=== PATIENT | female | born 1955 | race Hispanic/Latino ===

== ENCOUNTER 2024-10-10 00:55 | Emergency (ER) | payer MEDICAID, OTHER ==
[~2024-10-10] VITALS: Ht 154.9 cm; Wt 53.5 kg
[2024-10-10 01:38] LABS: IMMATURE GRANULOCYTE ABSOLUTE 0.00 K/uL (0-1); NUCLEATED RED BLOOD CELLS 0.0 % (0.0-0.19); PLATELET COUNT (AUTO) 151 K/uL (130-400); RED BLOOD CELL COUNT(AUTO) 4.02 MIL/uL (4.00-5.50); RED CELL DISTRIBUTION WIDTH 15.5 % (11.0-15.5); WHITE BLOOD COUNT (AUTO) 3.5 K/uL (4.8-10.8)
[2024-10-10 01:41] LABS: ADD UA MICROSCOPIC NO; APPEARANCE,URINE CLEAR (CLEAR); GLUCOSE, URINE (UA) NEGATIVE (NEGATIVE); LEUKOCYTE ESTERASE ,URINE NEGATIVE Leu/uL (NEGATIVE); NITRATE,URINE NEGATIVE (NEGATIVE); OCCULT BLOOD,URINE NEGATIVE (NEGATIVE)
[2024-10-10 01:46] LABS: CREATININE 1.0 mg/dL (0.5-1.0); GLOMERULAR FILTR. RATE CALC 62.0 mL/min (>90); GLUCOSE,RANDOM 86.0 mg/dL (70-105); SODIUM SERUM 145.0 mmol/L (136-145); UREA NITROGEN, BLOOD 13.0 mg/dL (7-18)
[2024-10-10 01:52] LABS: CREATINE KINASE, TOTAL 128.0 U/L (21-232)
[2024-10-10] MEDS: LACTATED RINGERS 1000ML IV STA (02:08)
--- NOTE | 2024-10-10 02:36 | HMCIMG ---
EXAM: CR Chest, 1 view CLINICAL HISTORY: Chest pain. COMPARISON: None provided. FINDINGS: Hyperinflated lungs, likely mild COPD. The lungs show no infiltrates or other acute findings. No pleural effusion or pneumothorax. The cardiomediastinal silhouette is within normal limits. Mild atherosclerotic aorta. No acute osseous abnormality. IMPRESSION: No acute cardiopulmonary process is evident. Mild COPD. /[place]
--- NOTE | 2024-10-10 02:45 | ERN ---
General Chief Complaint: Chest Pain Stated Complaint: CHEST PAIN Time Seen by MD: 01:25 Source: patient History of Present Illness Initial Comments Patient comes in with chest pain. No shortness of breath. She has history of a prior myocardial infarction and a stroke. She states that this does not feel quite the same as when she had her Allergies: Coded Allergies: Penicillins (Unverified Allergy, Unknown, 10/10/24) codeine (Unverified Allergy, Unknown, 10/10/24) Past Medical History Past Medical History: CVA, PA Past Surgical History: None Constitutional: (-) chills, (-) diaphoresis, (-) fever, (-) malaise, (-) weakness, (-) other documentation EENTM: (-) eye pain, (-) blurred vision, (-) tearing, (-) double vision, (-) ear pain, (-) ear discharge, (-) nose pain, (-) nose congestion, (-) throat pain, (-) Throat swelling, (-) mouth pain, (-) tooth pain, (-) mouth swelling, (-) other documentation Respiratory: (-) cough, (-) orthopnea, (-) short of breath, (-) stridor, (-) wheezing, (-) other documentation Cardiovascular: (+) chest pain, (+) other documentation Gastrointestinal/Abdominal: (+) nausea Genitourinary: (-) vaginal discharge, (-) vaginal bleeding, (-) dysuria, (-) frequency, (-) hematuria, (-) pain, (-) other documentation Musculoskeletal: (-) Neck pain, (-) back pain, (-) Flank Pain, (-) joint pain, (-) joint swelling, (-) muscle pain, (-) muscle stiffness, (-) gout, (-) other documentation Skin: (-) laceration, (-) contusion, (-) abrasion, (-) abscess, (-) rash, (-) change in color, (-) change in hair, (-) change in nails, (-) diaphoresis, (-) dryness, (-) other documentation Physical Exam General Appearance: (+) mild distress Orientation: (+) alert, (+) oriented x 3 Head/Face Trauma: No Eye: bilateral eye normal inspection, bilateral eye PERRL, bilateral eye EOMI Ear, Nose, Throat: (+) hearing grossly normal, (+) normal ENT inspection, (+) moist mucous membraine Neck: (+) normal inspection, (+) supple, (+) full range of motion Respiratory: (+) chest non-tender, (+) lungs clear, (+) well ventilated Heart: (+) regular, (+) no gallop Vascular: (+) no edema, (+) normal peripheral pulse Gastrointestinal: (+) soft, (+) non-tender, (+) bowel sound present Results Laboratory and Microbiology Lab and Micro Result Laboratory Tests Test 10/10/24 01:30 10/10/24 01:31 Urine Color COLORLESS (YELLOW) Urine Appearance CLEAR (CLEAR) Urine pH 6.0 (5.0-8.0) Urine Specific [place] 1.003 (1.001-1.031) Urine Protein NEGATIVE mg/dL (NEGATIVE) Urine Glucose (UA) NEGATIVE mg/dL (NEGATIVE) Urine Ketones NEGATIVE mg/dL (NEGATIVE) Urine Occult Blood NEGATIVE (NEGATIVE) Urine Nitrate NEGATIVE (NEGATIVE) Urine Bilirubin NEGATIVE mg/dL (NEGATIVE) Urine Urobilinogen 0.2 mg/dL (0.2-1.0) Urine Leukocyte Esterase NEGATIVE Daniel/uL White Blood Count 3.5 K/uL (4.8-10.8) L Red Blood Count 4.02 MIL/uL (4.00-5.50) Hemoglobin 10.8 g/dL (12.0-16.0) L Hematocrit 34.4 % (36-48) L Mean Corpuscular Volume 85.6 fL (79-99) Mean Corpuscular Hemoglobin 26.9 pg (27.0-33.0) L Mean Corpuscular Hemoglobin Concent 31.4 g/dL (32.0-36.0) L Red Cell Distribution Width 15.5 % (11.0-15.5) Platelet Count 151 K/uL (130-400) Mean Platelet Volume 9.7 fL (7.5-10.5) Immature Granulocyte % (Auto) 0.0 % (0-1) Neutrophils (%) (Auto) 34.1 % (40.0-77.0) L Lymphocytes (%) (Auto) 56.5 % (21.0-51.0) H Monocytes (%) (Auto) 8.2 % (3.0-13.0) Eosinophils (%) (Auto) 0.3 % (0.0-8.0) Basophils (%) (Auto) 0.9 % (0.0-5.0) Neutrophils # (Auto) 1.2 K/uL (1.8-7.7) L Lymphocytes # (Auto) 2.0 K/uL (1.0-4.8) Monocytes # (Auto) 0.3 K/uL (0.1-1.0) Eosinophils # (Auto) 0.01 K/uL (0.00-0.70) Basophils # (Auto) 0.03 K/uL (0.00-0.20) Absolute Immature Granulocyte (auto 0.00 K/uL (0-1) Nucleated Red Blood Cells 0.0 % (0.0-0.19) Sodium Level 145 mmol/L (136-145) Potassium Level 3.6 mmol/L (3.5-5.1) Chloride Level 106 mmol/L (101-111) Carbon Dioxide Level 29 mmol/L (21-32) Blood Urea Nitrogen 13 mg/dL (7-18) Creatinine 1.0 mg/dL (0.5-1.0) Glomerular Filtration Rate Calc 62 mL/min (>90) Random Glucose 86 mg/dL (70-105) Total Calcium 9.4 mg/dL (8.5-10.1) Total Creatine Kinase 128 U/L (21-232) Troponin I High Sensitivity 10 ng/L (4-50) B-Type Natriuretic Peptide 81 pg/mL (0-100) MDM MDM: Differential diagnosis: Given the patient's past medical history and most like the presence of vascular disease we will work this patient up to make sure she does not have an acute PA. I will also give her some fluid and examine for a urinary tract infection. Rationale: Tests considered and ordered secondary to shared decision making include: Previous outside records reviewed: Old ER visits. Risk of complication and/or morbidity or mortality of patient management: None Medications-Per medication reconciliation Need for hospitalization: Patient does meet criteria for hospitalization. Need for emergency major/minor surgery: No There are no social concerns with this patient. Prescription drug management Prescriptions will include symptomatic care Patient's prior external medical records from other ER visits were reviewed by me as indicated. Prior testing and results from previous visits were reviewed. Prior tests were taken into account with medical decision making and resource utilization, independent historian/historians were used to obtain complete medical history. I independently interpreted the test that were performed, results were reviewed by me and considered findings on radiology if ordered. Patient's cardiac enzymes are normal patient's chemistry panel is normal patient's CBC is normal patient does not have a urinary tract infection I will finish the fluid bolus and discharge her. ED Course Orders Procedure Category Date Status Time Vital Signs Per CPOE 10/10/24 Transmitted Routine 01:12 Chest 1vw RAD 10/10/24 Resulted 01:12 12 Lead Ekg Tracing- EKG 10/10/24 Logged Technical 01:12 Oxygen By Nc/Pulse Ox CPOE 10/10/24 Transmitted 01:12 Maintain Iv CPOE 10/10/24 Transmitted 01:12 Iv Insertion CPOE 10/10/24 Transmitted 01:12 Cardiac Monitoring CPOE 10/10/24 Transmitted 01:12 Pulse Oximetry With CPOE 10/10/24 Transmitted Vs And Prn 01:12 Cbc With Differential LAB 10/10/24 Complete 01:12 Activity: Br W/Brp CPOE 10/10/24 Transmitted With Assist 01:12 Creatine Kinase, Total LAB 10/10/24 Complete 01:12 Troponin I High LAB 10/10/24 Complete Sensitivity 01:12 Urinalysis Profile LAB 10/10/24 Complete 01:12 Basic Metabolic Panel LAB 10/10/24 Complete 01:12 B-Type Natriuretic LAB 10/10/24 Complete Peptide 01:29 Lactated Ringers PHA 10/10/24 Complete 1000ml (Lactated 01:29 Current Medications Medications (Trade) Dose Ordered Sig/Neisha Route PRN Reason Start Time Stop Time Status Last Admin Dose Admin Lactated Ringer's (Lactated Ringers 1000ml) 1,000 ml BOLUS STAT IV 10/10/24 01:29 10/10/24 01:31 DC 10/10/24 02:08 Vital Signs Date Time Temp Pulse Resp B/P (MAP) Pulse Ox O2 Delivery O2 Flow Rate FiO2 10/10/24 01:47 77 18 158/75 99 Room Air* 0 21 10/10/24 00:55 61 18 160/80 99 Room Air 0 DX & DISP Disposition: Discharge Departure Impression: Primary Impression: Chest pain Condition: Stable Additional Instructions: I do not know the cause of your chest pain at this point what I do know is that you are not having a heart attack and that you have a normal blood chemistry, a normal complete blood count and you do not have a urinary tract infection. It is possible that your symptoms are due to dehydration. Please drink enough flu id to have your urine runs clear each day. Please follow-up with your primary care physician if your symptoms do not improve. Referrals: QUINTIN GARZA MD (PCP) SANDY ORDONEZ MD Oct 10, 2024 02:45
[2024-10-10 03:35] VITALS: BP 142/70; PULSE 74; RESP 18; TEMP 97.8; O2SAT 99
--- NOTE | 2024-10-10 06:38 | EKG ---
[facility] Test Date: 2024-10-10 Test Time: 00:49:31 Pat Name: GUILLERMO REYNOLDS Department: [facility] Room: Gender: F [employer]: [id number] : 1955 Requested By: SANDY ORDONEZ Order Number: [id number] Reading MD: Chiara Dahl Measurements Intervals [place] Rate: 64 P: 16 NV: 154 QRS: 38 QRSD: 86 T: 39 QT: 393 QTc: 406 Interpretive Statements Sinus rhythm No previous ECG available for comparison Electronically Signed On 10-11-2024 14:11:49 CDT by Chiara Dahl Please click the below link to view image of tracing.
== END 2024-10-10 03:40 | disposition home or self-care (01) ==
LOC: EDH 00:55
DX: R07.89 Other chest pain (principal); I25.2 Old myocardial infarction; Z86.73 Personal history of transient ischemic attack (TIA), and cerebral infarction without residual deficits; Z88.0 Allergy status to penicillin; Z88.5 Allergy status to narcotic agent
CPT/HCPCS: 99285; 96360; 71045; 82550; 84484; 80048; 83880; 85025; 81003; 36415; 93005; J7120